=== PATIENT | male | born 1985 | race American Indian/Alaskan Native ===

== ENCOUNTER 2019-01-22 15:26 | Emergency (ER) | payer SELFPAY ==
--- NOTE | 2019-01-22 16:18 | Event Note ---
ED Screening Note Date of service: 01/22/19 Time: 16:17 ED Screening Note: 30 y/o male c/o bilateral eye pain. Think he may have a FB from working with yard work. This initial assessment/diagnostic orders/clinical plan/treatment(s) is/are subject to change based on patients health status, clinical progression and re- assessment by fellow clinical providers in the ED. Further treatment and workup at subsequent clinical providers discretion. Patient/guardian urged not to elope from the ED as their condition may be serious if not clinically assessed and managed. Initial orders include:
[2019-01-22] MEDS ORDERED: CLEOCIN PO ONE (18:50)
[2019-01-22] MEDS ORDERED: IBUPROFEN PO ONE (18:50)
--- NOTE | 2019-01-22 18:56 | Emergency Department Report ---
[facility] Chief Complaint: Eye Problems Stated Complaint: EYE RED/IRRITATION Time Seen by Provider: 01/22/19 18:11 Duration: Today Side: Right Severity: moderate Symptoms: Yes Eye Redness, Yes Eye Pain, No Eye Itching, No Mucous Drainage, No Purulent Drainage, No Blurred Vision, No Preceding URI, No H/O Allergic Rhinitis, No Contact Lens Use, No Trauma, No Fever, No Headache Other History: This is a 30-year-old male with a prior medical history who presents to ED complaining of right eye pain and irritation that began earlier today while he was at work. Patient states he works with [employer] and feels like he got some sawdust in his eye. Patient denies loss of vision, contact use. Patient states his tetanus is up-to-date. ED Review of Systems ROS: Stated complaint: EYE RED/IRRITATION Other details as noted in HPI Comment: All other systems reviewed and negative ED Past Medical Hx - Past Medical History Previous Medical History?: No - Surgical History Additional Surgical History: LEFT HAND - Social History Smoking Status: Never Smoker Substance Use Type: Alcohol - Medications Home Medications: Home Medications Medication Instructions Recorded Confirmed Last Taken Type Ibuprofen [Motrin 800 MG tab] 800 mg PO TID #30 tablet 01/22/19 Unknown Rx Neomy/Polymyx B/Hc (Otic) Soln 2 drops OU TID #1 bottle 01/22/19 Unknown Rx [Cortisporin (Otic) Soln] [facility] Exam - Exam General: Vital signs noted. No distress. Alert and acting appropriately. Eye Exam: Right Injection, Both EOMI, Neither Chemosis, Neither Abnormal Pupil, Neither Eye Foreign Body, Neither Lid Foreign Body, Neither Mucous Discharge, Neither Purulent Discharge, Neither Fluorescein Uptake (Huertas uptake, no cough, no abrasion), Neither Fluorescein Uptake (slit lamp) HEENT: No Nasal Congestion, No Pharyngeal Erythema Remainder of HEENT: Normal Lungs: Yes Clear Lung Sounds, Yes Good Air Exchange, No Wheezes, No Stridor, No Cough, No Nasal Flaring, No Retractions, No Use of Accessory Muscles Exam: PERRLA, vision is intact bilaterally, no orbital swelling, ED Course Vital Signs 01/22/19 16:13 Temperature 98.2 F Pulse Rate 86 Respiratory 18 Rate Blood Pressure 138/95 O2 Sat by Pulse 99 Oximetry ED Medical Decision Making - Medical Decision Making 29-year-old male presents with right eye conjunctivitis/foreign body in eye ED course: morillo lamp test shows no corneal abrasion. discussed this with the patient. 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 I discussed the patient is new or worsening symptoms to return to ED immediately Patient's vital signs are stable he's in no distress. Patient is vision is intact, visual acuity test performed, within normal limits. Discussed the patient to follow up with her primary care physician in 3-5 days. Critical care attestation.: If time is entered above; I have spent that time in minutes in the direct care of this critically ill patient, excluding procedure time. ED Disposition Clinical Impression: Conjunctivitis, Foreign body in eye Disposition: [id number] TO HOME OR SELFCARE Is pt being admited?: No Does the pt Need Aspirin: No Condition: Stable Instructions: Eye Foreign Body (ED), Conjunctivitis (ED), Corneal Abrasion (ED) Additional Instructions: Make sure to follow up with the primary care physician as discussed. Take all your medications as you've been prescribed. If you have any worsening symptoms or develop new symptoms please return to ED immediately. Prescriptions: Neomy/Polymyx B/Hc (Otic) Soln [Cortisporin (Otic) Soln] 2 drops OU TID #1 bottle Ibuprofen [Motrin 800 MG tab] 800 mg PO TID #30 tablet Referrals: [facility] MD LINDA [Primary Care Provider] - 3-5 Days SHO MILLS MD [Staff Physician] - 3-5 Days Forms: Work/School Release Form(ED) Time of Disposition: 20:04
[2019-01-22 21:22] VITALS: BP 153/93
== END 2019-01-22 21:24 | disposition home or self-care (01) ==
LOC: EDBD → ED 15:26
DX: T15.91XA Foreign body on external eye, part unspecified, right eye, initial encounter (principal); H10.9 Unspecified conjunctivitis; X58.XXXA Exposure to other specified factors, initial encounter; Y93.89 Activity, other specified; Y92.89 Other specified places as the place of occurrence of the external cause; Y99.8 Other external cause status; Z79.1 Long term (current) use of non-steroidal anti-inflammatories (NSAID)
CPT/HCPCS: 99283